=== PATIENT | female | born 1995 | race Caucasian/White ===

== ENCOUNTER 2023-08-10 00:53 | Inpatient (IN) | payer BC ==
[2023-08-10] MEDS ORDERED: hydrALAZINE 20 MG/ML VIAL SLOW IVP PRN ×2 (02:45→02:50)
[2023-08-10] MEDS ORDERED: Calcium Gluc 4.6 MEQ/10 ML (100 MG/ML) SLOW IVP PRN (02:50)
[2023-08-10] MEDS ORDERED: Labetalol HCl 100 MG/20 ML VIAL SLOW IVP PRN ×3 (02:50)
[2023-08-10] MEDS ORDERED: Lorazepam 2 MG/ML VIAL SLOW IVP PRN (02:50)
[2023-08-10] MEDS ORDERED: Magnesium Sulfate 20 gm/500 ml 20 GM/500 ML BAG IVPB SCH (03:00)
[2023-08-10] MEDS ORDERED: Acetaminophen 500 MG TAB PO SCH (03:00)
[2023-08-10] MEDS ORDERED: Acetaminophen 500 MG TAB PO PRN (03:04)
[2023-08-10] MEDS ORDERED: Promethazine HCl 25 MG/ML VIAL IM PRN (03:04)
[2023-08-10] MEDS ORDERED: Ondansetron PF 4 MG/2 ML Vial IVP PRN (03:04)
[2023-08-10] MEDS ORDERED: Labetalol HCl 200 MG TAB PO SCH (03:15)
[2023-08-10] MEDS ORDERED: Oxytocin 30 units/NS 500 ML 500 ML IV SCH (03:15)
[2023-08-10] MEDS ORDERED: Lactated Ringer's 1,000 ML IV SCH (03:30)
[2023-08-10] MEDS: Betamet Acet/Betamet Na Ph 30 MG/5 ML VIAL IM SCH (04:12)
[2023-08-10 05:05] LABS: Creatinine, Urine 106.85 mg/dL (47-110)
[2023-08-10] MEDS: NIFEdipine XL 30 MG ER.TAB PO SCH (08:42)
[2023-08-10] MEDS: Labetalol HCl 200 MG TAB PO SCH ×2 (08:42→20:57)
[2023-08-10 11:17] VITALS: BMI 42.1
[2023-08-10 12:02] LABS: Hematocrit 35.4 % (34.9-44.5); Hemoglobin 11.7 g/dL (12.0-15.5); Mean Corpuscular HGB CONC 33.1 g/dL (32.0-36.0); Mean Corpuscular Hemoglobin 28.9 pg (27.0-33.0); Mean Corpuscular Volume 87.4 fl (81.6-98.3); Mean Platelet Volume 10.2 fl (7.4-10.4); Platelet Count 294 10x3/uL (150-450); RBC Distribution Width 13.7 % (11.5-14.5); Red Blood Cell (RBC) Count 4.05 10x6/uL (3.90-5.03); White Blood Cell (WBC) Count 10.3 10x3/uL (3.5-10.5)
[2023-08-10 12:31] LABS: Syphilis Antibody Nonreactive (Nonreactive); Syphilis Antibody Index 0.03 S/CO (<1.00 Non-Reactive)
[2023-08-10 12:32] LABS: HBSAg Index 0.22 S/CO (0-0.99); Hep B Surf Ag - L&D Non-Reactive S/CO (NonReactive)
[2023-08-11] MEDS: Betamet Acet/Betamet Na Ph 30 MG/5 ML VIAL IM SCH (03:50)
[2023-08-11 06:15] LABS: #Monocytes 0.4 10x3/uL (0.0-1.1); #Neutrophils 11.3 10x3/uL (1.5-8.4); %Basophils 0.2 % (0.0-2.0); %Lymphocytes 10.9 % (18.0-47.0); %Monocytes 3.2 % (0.0-10.0); %Neutrophils 84.9 % (40.0-75.0); Hematocrit 32.7 % (34.9-44.5); Hemoglobin 10.8 g/dL (12.0-15.5); Mean Corpuscular Hemoglobin 28.7 pg (27.0-33.0); Platelet Count 278 10x3/uL (150-450); RBC Distribution Width 14.2 % (11.5-14.5); Red Blood Cell (RBC) Count 3.76 10x6/uL (3.90-5.03); White Blood Cell (WBC) Count 13.3 10x3/uL (3.5-10.5)
[2023-08-11 06:32] LABS: ALT (SGPT) 12 U/L (8-55); AST (SGOT) 18 U/L (5-34); Albumin 2.9 g/dL (3.5-5.0); Alkaline Phosphatase 150 U/L (40-110); Anion Gap 14 mmol/L (10-20); BUN (Urea Nitrogen) 10 mg/dL (7.0-18.7); Bilirubin, Total 0.2 mg/dL (0.2-1.2); Calc. Creatinine Clearance 249 mL/min (70-130); Carbon Dioxide 16 mmol/L (22-29); Chloride 110 mmol/L (98-107); Estimated GFR 123; Globulin 3.1 g/dL (2.4-3.5); Glucose 103 mg/dL (70-105); Potassium 4.1 mmol/L (3.5-5.1); Sodium 136 mmol/L (136-145)
[2023-08-11] MEDS: Labetalol HCl 200 MG TAB PO SCH (09:20)
[2023-08-11] MEDS: NIFEdipine XL 30 MG ER.TAB PO SCH (09:22)
[2023-08-11] MEDS ORDERED: Labetalol HCl 200 MG TAB PO SCH (17:45)
[2023-08-12] MEDS: NIFEdipine XL 30 MG ER.TAB PO SCH (09:31)
[2023-08-12] MEDS: Labetalol HCl 200 MG TAB PO SCH ×3 (09:31→20:47)
[2023-08-13] MEDS: NIFEdipine XL 30 MG ER.TAB PO SCH (08:26)
[2023-08-13] MEDS: Labetalol HCl 200 MG TAB PO SCH (08:26)
[2023-08-13 10:55] LABS: #Basophils 0.1 10x3/uL (0.0-0.2); #Monocytes 0.9 10x3/uL (0.0-1.1); #Neutrophils 8.9 10x3/uL (1.5-8.4); %Basophils 0.5 % (0.0-2.0); %Eosinophils 0.2 % (0.0-6.0); %Lymphocytes 20.8 % (18.0-47.0); %Monocytes 7.4 % (0.0-10.0); %Neutrophils 69.9 % (40.0-75.0); Hematocrit 32.3 % (34.9-44.5); Hemoglobin 10.5 g/dL (12.0-15.5); Mean Corpuscular HGB CONC 32.5 g/dL (32.0-36.0); Mean Corpuscular Hemoglobin 28.7 pg (27.0-33.0); Mean Corpuscular Volume 88.3 fl (81.6-98.3); Mean Platelet Volume 10.2 fl (7.4-10.4); Platelet Count 264 10x3/uL (150-450); RBC Distribution Width 14.1 % (11.5-14.5); Red Blood Cell (RBC) Count 3.66 10x6/uL (3.90-5.03); White Blood Cell (WBC) Count 12.7 10x3/uL (3.5-10.5)
[2023-08-13 11:00] VITALS: BP 138/78; TEMP 97.9
[2023-08-13 11:20] LABS: ALT (SGPT) 17 U/L (8-55); AST (SGOT) 24 U/L (5-34); Albumin 2.9 g/dL (3.5-5.0); Alkaline Phosphatase 136 U/L (40-110); Anion Gap 12 mmol/L (10-20); BUN (Urea Nitrogen) 13 mg/dL (7.0-18.7); Bilirubin, Total 0.2 mg/dL (0.2-1.2); Calc. Creatinine Clearance 222 mL/min (70-130); Calcium 8.3 mg/dL (7.8-10.44); Carbon Dioxide 18 mmol/L (22-29); Chloride 112 mmol/L (98-107); Estimated GFR 111; Globulin 2.9 g/dL (2.4-3.5); Glucose 83 mg/dL (70-105); Potassium 4.3 mmol/L (3.5-5.1); Protein, Total 5.8 g/dL (6.0-8.3); Sodium 138 mmol/L (136-145)
== END 2023-08-13 12:20 | disposition home or self-care (01) | DRG 833 ==
LOC: CSHLD/OP 00:53 → CSHLD 05:42 → OBSVTOIN 07:29 → CSHANTE 08-11 11:30
PROVIDERS: ADMIT Obstetrics & Gynecology; ATTEND Obstetrics & Gynecology
DX: O14.10 Severe pre-eclampsia, unspecified trimester (principal); O99.891 Other specified diseases and conditions complicating pregnancy; R51.9 Headache, unspecified; O12.03 Gestational edema, third trimester; Z3A.30 30 weeks gestation of pregnancy
CPT/HCPCS: 36415; 76815; 80053; 82570; 84156; 85025; 85027; 86780; 86850; 86900; 86901; 87340; J0702; J3475

== ENCOUNTER 2023-08-14 21:04 | Inpatient (IN) | payer BC ==
[2023-08-14 21:30] VITALS: BMI 39.9
[2023-08-14] MEDS ORDERED: hydrALAZINE 20 MG/ML VIAL ONE (22:01)
[2023-08-14] MEDS ORDERED: Ondansetron PF 4 MG/2 ML Vial IVP PRN ×3 (22:07→23:21)
[2023-08-14] MEDS ORDERED: Tranexamic Acid 1,000 MG/10 ML VIAL IVP PRN (22:07)
[2023-08-14] MEDS ORDERED: Promethazine HCl 25 MG/ML VIAL IM PRN ×2 (22:07→23:21)
[2023-08-14] MEDS ORDERED: Carboprost 250 MCG/ML AMP IM PRN (22:07)
[2023-08-14] MEDS ORDERED: Misoprostol 200 MCG TAB PR PRN (22:07)
[2023-08-14] MEDS ORDERED: hydrALAZINE 20 MG/ML VIAL SLOW IVP PRN ×2 (22:07→22:18)
[2023-08-14] MEDS ORDERED: Lorazepam 2 MG/ML VIAL SLOW IVP PRN (22:09)
[2023-08-14] MEDS ORDERED: Calcium Gluc 4.6 MEQ/10 ML (100 MG/ML) SLOW IVP PRN (22:09)
[2023-08-14] MEDS ORDERED: Oxytocin 30 units/NS 500 ML 500 ML IV SCH (22:15)
[2023-08-14] MEDS: Magnesium Sulfate 20 gm/500 ml 20 GM/500 ML BAG IVPB SCH (22:30)
[2023-08-14] MEDS ORDERED: CEFAZOLIN 2 GM VIAL ONE (22:57)
[2023-08-14] MEDS: Labetalol HCl 100 MG/20 ML VIAL SLOW IVP PRN ×2 (23:00→23:11)
[2023-08-14] MEDS ORDERED: Morphine PF 10 MG/10 ML VIAL ONE (23:03)
[2023-08-14] MEDS ORDERED: Sodium Bicarbonate 2.5 MEQ/5 ML VIAL ONE (23:03)
[2023-08-14] MEDS ORDERED: fentaNYL 50 mcg/mL 1 mL Vial ONE (23:03)
[2023-08-14] MEDS ORDERED: Phenylephrine 40 MG/NS 250 ML 250 ML ONE (23:03)
[2023-08-14] MEDS ORDERED: Promethazine HCl 25 MG SUPP PR PRN (23:21)
[2023-08-14] MEDS ORDERED: diphenhydrAMINE 50 MG/ML VIAL IVP PRN (23:21)
[2023-08-14] MEDS ORDERED: Meperidine HCl/PF 25 MG/ML VIAL SLOW IVP PRN (23:21)
[2023-08-14] MEDS ORDERED: Moisturizing Cream (Eucerin) 113 GM JAR TOP PRN (23:21)
[2023-08-14] MEDS ORDERED: fentaNYL 50 mcg/mL 1 mL Vial SLOW IVP PRN (23:21)
[2023-08-14] MEDS ORDERED: Naloxone HCl 0.4 mg/ml Vial IVP PRN ×2 (23:21)
[2023-08-14] MEDS ORDERED: Naloxone HCl 0.4 mg/ml Vial IV PRN (23:21)
[2023-08-14] MEDS ORDERED: Communication Order-Pharmacy FS SCH (23:30)
[2023-08-14 23:45] LABS: #Eosinphils 0.1 10x3/uL (0.0-0.5); #Monocytes 0.8 10x3/uL (0.0-1.1); #Neutrophils 9.3 10x3/uL (1.5-8.4); %Basophils 0.2 % (0.0-2.0); %Lymphocytes 19.4 % (18.0-47.0); %Monocytes 6.1 % (0.0-10.0); %Neutrophils 72.1 % (40.0-75.0); Hematocrit 31.4 % (34.9-44.5); Hemoglobin 10.6 g/dL (12.0-15.5); Mean Corpuscular HGB CONC 33.8 g/dL (32.0-36.0); Platelet Count 262 10x3/uL (150-450); Red Blood Cell (RBC) Count 3.65 10x6/uL (3.90-5.03)
[2023-08-14 23:55] LABS: ALT (SGPT) 15 U/L (8-55); AST (SGOT) 25 U/L (5-34); Albumin 2.9 g/dL (3.5-5.0); Alkaline Phosphatase 139 U/L (40-110); Anion Gap 12 mmol/L (10-20); BUN (Urea Nitrogen) 8 mg/dL (7.0-18.7); Bilirubin, Total 0.3 mg/dL (0.2-1.2); Calc. Creatinine Clearance 239 mL/min (70-130); Calcium 8.2 mg/dL (7.8-10.44); Carbon Dioxide 17 mmol/L (22-29); Chloride 112 mmol/L (98-107); Estimated GFR 123; Globulin 3.1 g/dL (2.4-3.5); Glucose 80 mg/dL (70-105); Sodium 137 mmol/L (136-145)
[2023-08-14] MEDS ORDERED: PROPOFOL 20 ML ONE (23:57)
[2023-08-14] MEDS ORDERED: Succinylcholine 200 MG/10 ml SYRINGE FS ONE (23:57)
[2023-08-15] MEDS ORDERED: Oxytocin 10 UNITS/ML VIAL ONE ×2 (00:13→00:27)
[2023-08-15 00:16] LABS: HBSAg Index 0.18 S/CO (0-0.99); Hep B Surf Ag - L&D Non-Reactive S/CO (NonReactive); Syphilis Antibody Nonreactive (Nonreactive); Syphilis Antibody Index 0.05 S/CO (<1.00 Non-Reactive)
[2023-08-15] MEDS ORDERED: hydrALAZINE 20 MG/ML VIAL SLOW IVP PRN (00:20)
[2023-08-15] MEDS ORDERED: Acetaminophen 325 MG TAB PO PRN (00:20)
[2023-08-15] MEDS ORDERED: Boostrix 0.5 ML (Tdap) VIAL (>/=7 yrs of age) IM ONE (00:20)
[2023-08-15] MEDS ORDERED: diphenhydrAMINE 25 MG CAP PO PRN ×2 (00:20→01:13)
[2023-08-15] MEDS ORDERED: Ketorolac Tromethamine 30 MG/ML VIAL ONE (00:34)
[2023-08-15] MEDS ORDERED: Dexamethasone 4 mg/ml Vial ONE (00:35)
[2023-08-15] MEDS ORDERED: Ondansetron PF 4 MG/2 ML Vial ONE (00:35)
[2023-08-15] MEDS ORDERED: Phytonadione Neonatal 1 MG/0.5 ML AMP ONE (00:36)
[2023-08-15] MEDS ORDERED: Erythromycin Base 0.5% Oint 1 GM TUBE ONE (00:36)
[2023-08-15] MEDS ORDERED: Bupivacaine 0.25% HCL 30 ML VIAL ONE (00:57)
[2023-08-15] MEDS ORDERED: Promethazine HCl 25 MG/ML VIAL IM PRN (01:13)
[2023-08-15] MEDS ORDERED: Ondansetron PF 4 MG/2 ML Vial IVP PRN (01:13)
[2023-08-15] MEDS ORDERED: diphenhydrAMINE 50 MG/ML VIAL IVP PRN (01:13)
[2023-08-15] MEDS ORDERED: HYDROmorphone 10 mg/100 ml CADD IVPB PRN (01:13)
[2023-08-15] MEDS ORDERED: Naloxone HCl 0.4 mg/ml Vial IV PRN (01:13)
[2023-08-15] MEDS ORDERED: diphenhydrAMINE 50 MG/ML VIAL IM PRN (01:13)
[2023-08-15] MEDS ORDERED: Communication Order-Pharmacy FS SCH (01:15)
[2023-08-15] MEDS ORDERED: HYDROmorphone/PF 10 MG in Sodium Chloride 0.9% 49 ML IVPB PRN (01:45)
[2023-08-15] MEDS: Magnesium Sulfate 20 gm/500 ml 20 GM/500 ML BAG IVPB SCH ×2 (04:25→14:23)
[2023-08-15] MEDS ORDERED: NIFEdipine XL 30 MG ER.TAB PO SCH (09:00)
[2023-08-15 09:56] LABS: Creatinine, Urine 35.78 mg/dL (47-110)
[2023-08-15] MEDS: Ferrous Sulfate 325 MG TAB PO SCH ×2 (10:03→21:02)
[2023-08-15] MEDS: Prenatal Vitamin 1 TAB PO SCH (10:04)
[2023-08-15] MEDS: NIFEdipine XL 30 MG ER.TAB PO SCH (10:04)
[2023-08-15 10:36] LABS: Magnesium 5.2 mg/dL (1.6-2.6)
[2023-08-15] MEDS ORDERED: HYDROcodone/Acetaminophen 5/325 mg Tablet PO PRN (11:30)
[2023-08-15] MEDS ORDERED: Labetalol HCl 200 MG TAB PO SCH (20:00)
[2023-08-15] MEDS: Docusate 100 MG CAP PO SCH (21:02)
[2023-08-16 04:16] LABS: Hematocrit 27.9 % (34.9-44.5); Hemoglobin 9.2 g/dL (12.0-15.5); Platelet Count 268 10x3/uL (150-450); Red Blood Cell (RBC) Count 3.17 10x6/uL (3.90-5.03)
[2023-08-16] MEDS ORDERED: Labetalol HCl 200 MG TAB PO SCH (09:00)
[2023-08-16] MEDS: Docusate 100 MG CAP PO SCH ×3 (09:12→21:42)
[2023-08-16] MEDS: Ferrous Sulfate 325 MG TAB PO SCH ×2 (09:12→21:42)
[2023-08-16] MEDS: Prenatal Vitamin 1 TAB PO SCH (09:12)
[2023-08-16] MEDS: NIFEdipine XL 30 MG ER.TAB PO SCH (09:17)
[2023-08-16] MEDS ORDERED: Furosemide 40 MG TAB PO SCH (10:00)
[2023-08-16] MEDS ORDERED: DC PCA Order Set 1 EACH FS ONE (10:18)
[2023-08-16] MEDS ORDERED: HYDROcodone/Acetaminophen 5/325 mg Tablet PO PRN ×2 (10:18→10:34)
[2023-08-16] MEDS: Ketorolac Tromethamine 30 MG/ML VIAL IVP SCH ×2 (10:50→10:51)
[2023-08-16] MEDS: Ibuprofen 800 MG TAB PO SCH ×2 (12:28→21:43)
[2023-08-16] MEDS: Acetaminophen 325 MG TAB PO SCH ×3 (12:29→23:55)
[2023-08-17] MEDS: Ibuprofen 800 MG TAB PO SCH ×3 (04:43→20:44)
[2023-08-17] MEDS: Acetaminophen 325 MG TAB PO SCH ×3 (06:06→17:32)
[2023-08-17] MEDS: Prenatal Vitamin 1 TAB PO SCH (08:09)
[2023-08-17] MEDS: Docusate 100 MG CAP PO SCH ×2 (08:09→20:44)
[2023-08-17] MEDS: Ferrous Sulfate 325 MG TAB PO SCH ×2 (08:09→20:44)
[2023-08-17] MEDS: NIFEdipine XL 30 MG ER.TAB PO SCH (08:10)
[2023-08-17] MEDS ORDERED: NIFEdipine XL 90 MG ER.TAB PO SCH (09:00)
[2023-08-17] MEDS ORDERED: NIFEdipine XL 30 MG ER.TAB PO SCH (11:30)
[2023-08-17] MEDS ORDERED: Labetalol HCl 200 MG TAB PO SCH (19:15)
[2023-08-18] MEDS: Acetaminophen 325 MG TAB PO SCH ×5 (00:14→23:30)
[2023-08-18] MEDS: Ibuprofen 800 MG TAB PO SCH ×3 (04:26→21:15)
[2023-08-18] MEDS: NIFEdipine XL 90 MG ER.TAB PO SCH (08:47)
[2023-08-18] MEDS: Labetalol HCl 100 MG TAB PO SCH ×2 (08:47→21:15)
[2023-08-18] MEDS: Docusate 100 MG CAP PO SCH ×2 (08:48→21:15)
[2023-08-18] MEDS: Ferrous Sulfate 325 MG TAB PO SCH ×2 (08:48→21:14)
[2023-08-18] MEDS: Prenatal Vitamin 1 TAB PO SCH (08:48)
[2023-08-18] MEDS: Furosemide 40 MG/4 ML VIAL SLOW IVP SCH ×2 (17:52→18:48)
[2023-08-19] MEDS: Ibuprofen 800 MG TAB PO SCH ×2 (03:57→12:05)
[2023-08-19 04:34] LABS: Anion Gap 14 mmol/L (10-20); BUN (Urea Nitrogen) 11 mg/dL (7.0-18.7); Calc. Creatinine Clearance 246 mL/min (70-130); Calcium 8.3 mg/dL (7.8-10.44); Carbon Dioxide 20 mmol/L (22-29); Chloride 108 mmol/L (98-107); Estimated GFR 124; Glucose 87 mg/dL (70-105); Potassium 3.6 mmol/L (3.5-5.1); Sodium 138 mmol/L (136-145)
[2023-08-19] MEDS: Acetaminophen 325 MG TAB PO SCH ×2 (05:34→12:04)
[2023-08-19 07:57] VITALS: TEMP 98.3
[2023-08-19] MEDS: Docusate 100 MG CAP PO SCH (08:25)
[2023-08-19] MEDS: Prenatal Vitamin 1 TAB PO SCH (08:25)
[2023-08-19] MEDS: NIFEdipine XL 90 MG ER.TAB PO SCH (08:26)
[2023-08-19] MEDS: Labetalol HCl 100 MG TAB PO SCH (08:26)
[2023-08-19] MEDS: Ferrous Sulfate 325 MG TAB PO SCH (08:26)
[2023-08-19 12:13] VITALS: BP 122/70
== END 2023-08-19 13:05 | disposition home or self-care (01) | DRG 788 ==
LOC: CSHLD/OP 21:04 → CSHLD 22:37 → CSHPP 08-16 02:00
PROVIDERS: ADMIT Obstetrics & Gynecology; ATTEND Obstetrics & Gynecology
PROC: 10D00Z1 Extraction of Products of Conception, Low, Open Approach (ICD-10-PCS; principal; 2023-08-15)
DX: O14.14 Severe pre-eclampsia complicating childbirth (principal); O36.8130 Decreased fetal movements, third trimester, not applicable or unspecified; Z37.0 Single live birth; Z3A.30 30 weeks gestation of pregnancy; Z79.82 Long term (current) use of aspirin; Z79.899 Other long term (current) drug therapy
CPT/HCPCS: 36415; 51702; 80048; 80053; 82570; 83735; 84156; 85027; 86780; 86850; 86900; 86901; 87340; 88307; 99285; J0360; J1100; J1170; J1650; J1885; J1940; J2274; J2405; J2590; J2704; J3010; J3475; J3490; S0020